=== PATIENT | female | born 1970 | race Caucasian/White ===

== ENCOUNTER 2017-09-07 11:06 | Emergency (ER) | payer MEDICARE, MEDICAID ==
[~2017-09-07] VITALS: Ht 162.6 cm; Wt 72.6 kg
[2017-09-07] MEDS ORDERED: XANAX0.5 MG ORAL (11:31)
[2017-09-07 12:36] VITALS: BP 138/85
[2017-09-07 12:40] VITALS: BP 138/85
--- NOTE | 2017-09-15 14:19 | Emergency Room Report ---
History of Present Illness General Chief Complaint: Medication Refill Source: Patient Present Illness HPI Patient presents for prescription of Xanax Reports that she has just recently filled 30 pills 2 weeks ago Is here out of town And realizes that she will be running out in the next 4-5 days and therefore would like a prescription prior to running out Patient has previous unfortunate events She reports she requires a medication by her primary physician Denies any other palpitations denies any chest pain or shortness of breath denies any suicidal or homicidal thoughts Allergies: Coded Allergies: No Known Allergies (Unverified , 09/07/17) Patient History Past Medical History: see triage record Pertinent Family History: none Reviewed Nursing Documentation: PMH: Agreed, PSxH: Agreed Nursing Documentation-PMH Past Medical History: No History, Except For History Of Psychiatric Problem: Yes - anxiety, depression Review of Systems All Other Systems: negative except mentioned in HPI Physical Exam Sp02 EP Interpretation: reviewed, normal General Appearance: well appearing, no apparent distress Head: normocephalic, atraumatic Eyes: bilateral eye PERRL, bilateral eye EOMI ENT: normal pharynx Neck: supple Musculoskeletal: normal inspection Neurologic: alert, oriented x3 Psychiatric: mood/affect normal Skin: normal color Lymphatic: no adenopathy Medical Decision Making Diagnostic Impression: Primary Impression: Encounter for medication refill ER Course I had a long discussion with the patient regarding the inability to provide prescription medication at this time Patient also asking regarding outpatient resources who might be able to assist Patient is provided multiple resources Does not meet any criteria for further psychiatric evaluation and will have close outpatient follow-up Status: unchanged Disposition: HOME, SELF-CARE Condition: Stable Referrals: NON PHYSICIAN (PCP) Patient Instructions: Depression, Adult, [id number] Additional Instructions: You have requested prescription for Xanax. As you mentioned 30 pills were filled on September 01. At this time it is not appropriate for prescription through emergency room. However you have been provided resources for outpatient follow- up. Bel Bell DO Sep 15, 2017 14:19
== END 2017-09-07 12:42 | disposition home or self-care (01) ==
LOC: EMR 11:50
DX: F32.9 Major depressive disorder, single episode, unspecified (principal); F41.9 Anxiety disorder, unspecified
CPT/HCPCS: 99283